=== PATIENT | male | born 1995 ===

== ENCOUNTER 2018-09-27 17:10 | Emergency (ER) | payer OTHER, BC ==
[2018-09-27 17:12] VITALS: BP 129/69; PULSE 75; RESP 18; TEMP 99; O2SAT 98
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
== END 2018-09-27 18:17 | disposition home or self-care (01) ==
LOC: C.ER 17:10
DX: M54.5 Low back pain (principal)